=== PATIENT | male | born 1985 | race Caucasian/White ===

== ENCOUNTER 2016-06-10 20:39 | Emergency (ER) | payer OTHER ==
[~2016-06-10] VITALS: Ht 170.2 cm; Wt 96.9 kg
[2016-06-10 21:04] LABS: HEMATOCRIT 44.2 % (38.0-50.0); MCH 30.2 PG (29.0-34.0); MCHC 33.9 G/DL (30.0-36.0); MCV 88.9 FL (86-99); PLATELET COUNT 278 K/uL (156-360); RBC DIS.WIDTH-CV 12.8 % (11.8-14.6); RBC DIS.WIDTH-SD 41.5 % (39-53); RED BLOOD COUNT 4.97 M/uL (4.00-5.50)
[2016-06-10 21:18] LABS: CHLORIDE 104 mEq/L (99-109); POTASSIUM 5.2 mEq/L (3.7-5.4); SODIUM 142 mEq/L (136-147)
[2016-06-10 21:20] LABS: GLUCOSE 98 mg/dL (70-99)
[2016-06-10 21:22] LABS: ANION GAP 8 MEQ/L (2-14)
[2016-06-10 21:24] LABS: GFR ESTIMATE (CALCULATED) > 59 mL/min/
[2016-06-10 21:25] LABS: UREA NITROGEN (BUN) 10 mg/dL (9-23)
[2016-06-10 21:26] LABS: TROP-I INTERPRETATION NEGATIVE; TROPONIN-I < 0.01 ng/mL (0.0-0.30)
[2016-06-10 22:50] LABS: TROP-I INTERPRETATION NEGATIVE; TROPONIN-I < 0.01 ng/mL (0.0-0.30)
[2016-06-10 23:49] VITALS: BP 141/82
== END 2016-06-10 23:50 | disposition home or self-care (01) ==
LOC: EME 20:39
PROVIDERS: Emergency Medicine
DX: R07.9 Chest pain, unspecified (principal); M54.9 Dorsalgia, unspecified
CPT/HCPCS: 71020; 80048; 84484; 85027; 93005; 99281; 99284

== ENCOUNTER 2016-09-18 16:41 | Emergency (ER) | payer OTHER ==
[~2016-09-18] VITALS: Ht 177.8 cm; Wt 92.5 kg
[2016-09-18] MEDS ORDERED: BENADRYL50 MG PO (18:15)
[2016-09-18] MEDS ORDERED: EPIPEN ADU0.3 MG/0.3 IM (18:15)
[2016-09-18 18:23] VITALS: BP 159/98
== END 2016-09-18 18:26 | disposition home or self-care (01) ==
LOC: EME 16:41
DX: T63.441A Toxic effect of venom of bees, accidental (unintentional), initial encounter (principal); M25.521 Pain in right elbow
CPT/HCPCS: 99281; 99283